=== PATIENT | male | born 1955 | race Caucasian/White ===

== ENCOUNTER → 2016-12-30 | Outpatient (CLI) | payer BC ==
[~2016-12-30] MED LIST: BUPR300T2 PO; HYDR25TA6 PO; OMNIPAQUE 350 MG/ML, 100ML BOTTLE ONE; PIND5TAB PO
== END | disposition home or self-care (01) ==
LOC: CFH 13:30
PROVIDERS: ATTEND Internal Medicine Cardiovascular Disease
DX: R06.02 Shortness of breath (principal); K76.89 Other specified diseases of liver; N28.9 Disorder of kidney and ureter, unspecified; S89.92XA Unspecified injury of left lower leg, initial encounter; Z90.49 Acquired absence of other specified parts of digestive tract; X58.XXXA Exposure to other specified factors, initial encounter; Y93.89 Activity, other specified; Y92.89 Other specified places as the place of occurrence of the external cause; Y99.8 Other external cause status
CPT/HCPCS: 71275; Q9967

== ENCOUNTER → 2017-01-03 | Outpatient (CLI) | payer BC ==
[~2017-01-03] MED LIST changes: -OMNIPAQUE 350 MG/ML, 100ML BOTTLE ONE
== END | disposition home or self-care (01) ==
LOC: CARD 15:13
PROVIDERS: ATTEND Internal Medicine Cardiovascular Disease
DX: R06.02 Shortness of breath (principal); G47.30 Sleep apnea, unspecified
CPT/HCPCS: 94060; 94726; 94729

== ENCOUNTER 2018-12-07 18:23 | Inpatient (IN) | payer BC ==
[~2018-12-07] VITALS: Ht 180.3 cm; Wt 98.0 kg
--- NOTE | 2018-12-07 18:29 | NUR ---
gift packer: pt unable to get out of car. This rn and Bill rn assited pt into bed with slide board while following [facility] prec[facility]. pt was straight back to room 31 and charge account identification clerk aware of situation. No obivious bleeding or open wounds to this RN. Care to Flyne A RN.
[2018-12-07] MEDS ORDERED: MORPHINE SULFATE 4 MG/ML, 1ML ONE (18:37)
[2018-12-07] MEDS ORDERED: ONDANSETRON 2MG/ML, 2ML ONE ×2 (18:41→21:18)
--- NOTE | 2018-12-07 18:58 | NUR ---
Lunch RN: Pt in xray at this time.
[2018-12-07] MEDS ORDERED: SODIUM CHLORIDE FLUSH 10ML SYR IVF ONE (19:00)
[2018-12-07] MEDS ORDERED: MORPHINE SULFATE 4 MG/ML, 1ML IVPush PRN (19:00)
[2018-12-07] MEDS ORDERED: ONDANSETRON 2MG/ML, 2ML IVPush ONE (19:00)
--- NOTE | 2018-12-07 19:09 | NUR ---
LUNCH RN: pt placed on o2 due to desaturation. pt reports good pain control. ekg being completed.
[2018-12-07 19:17] LABS: BASOPHILS # (AUTO) 0.03 x10^3/uL (0-0.1); BASOPHILS % (AUTO) 0 % (0-1); EOSINOPHILS # (AUTO) 0.13 x10^3/uL (0-0.4); EOSINOPHILS % (AUTO) 2 % (1-7); LYMPHOCYTES # (AUTO) 1.29 x10^3/uL (1-3.4); LYMPHOCYTES % (AUTO) 17 % (22-44); MD NO; MEAN CORPUSCULAR HEMOGLOBIN 30.5 pg (27.5-34.5); MEAN CORPUSCULAR VOLUME 92.4 fL (81-97); MEAN PLATELET VOLUME 8.6 fL (7.4-10.4); MONOCYTES # (AUTO) 0.58 x10^3/uL (0.2-0.8); MONOCYTES % (AUTO) 8 % (2-9); NEUTROPHILS # (AUTO) 5.37 x10^3/uL (1.8-6.8); NEUTROPHILS % (AUTO) 73 % (42-75); PLATELET COUNT 246 x10^3/uL (130-400); RED BLOOD COUNT 6.12 x10^6/uL (4.38-5.82); RED CELL DISTRIBUTION WIDTH 13.6 % (9.4-14.8)
[2018-12-07 19:24] LABS: ANION GAP 9 mmol/L (5-15); CALCIUM 9.3 mg/dL (8.5-10.1); CHLORIDE 105 mmol/L (98-107); CREATININE 1.51 mg/dL (0.7-1.3)
--- NOTE | 2018-12-07 19:28 | NUR ---
LUNCH RN: PT GIVE ORAL SWABS TO HELP KEEP ORAL MUCOSA MOIST PT IS NPO DUE TO POSSIBLE SURGERY AT THIS TIME.
[2018-12-07] MEDS ORDERED: SODIUM CHLORIDE 0.9% 1,000 ML IV ONE (19:35)
[2018-12-07] MEDS ORDERED: POTA10CA PO (19:41)
--- NOTE | 2018-12-07 19:48 | NUR ---
pt states pain is controlled at this time
--- NOTE | 2018-12-07 19:59 | NUR ---
report to nicolette nunez
[2018-12-07] MEDS ORDERED: Wellbutrin (20:40)
[2018-12-07 20:56] VITALS: BP 131/81
[2018-12-07] MEDS ORDERED: morphine SULFATE 10 MG/ML, 1ML IVPush PRN (21:00)
[2018-12-07] MEDS ORDERED: DOCUSATE 100 MG CAPSULE PO PRN (21:00)
[2018-12-07] MEDS ORDERED: MORPHINE SULFATE 4 MG/ML, 1ML IVPush ONE (21:00)
[2018-12-07] MEDS ORDERED: hydrALAzine 20 MG/ML, 1ML IVPush PRN (21:00)
[2018-12-07] MEDS ORDERED: ACETAMINOPHEN 325 MG TABLET PO PRN (21:00)
[2018-12-07] MEDS ORDERED: TEMAZEPAM 15 MG CAPSULE PO PRN (21:00)
[2018-12-07] MEDS ORDERED: FENTANYL PF 100 MCG/2ML ONE ×2 (21:03→22:16)
[2018-12-07] MEDS ORDERED: CEFAZOLIN 1,000 MG ONE (21:18)
[2018-12-07] MEDS ORDERED: PROPOFOL 10 MG/ML, 20ML ONE (21:18)
[2018-12-07] MEDS ORDERED: SUCCINYLCHOLINE 20 MG/ML, 10ML ONE (21:18)
[2018-12-07] MEDS ORDERED: OXYcodone 5 MG/5 ML ORAL.SOL UDC ONE (22:16)
[2018-12-07] MEDS: FENTANYL PF 100 MCG/2ML IV PRN ×2 (22:20→22:29)
[2018-12-07] MEDS ORDERED: MEPERIDINE/PF 25MG/ML,1ML ONE (22:20)
[2018-12-07] MEDS ORDERED: KETOROLAC 30 MG/1 ML ONE (22:24)
[2018-12-07] MEDS ORDERED: ONDANSETRON 2MG/ML, 2ML IVPush PRN (22:30)
[2018-12-07] MEDS ORDERED: LABETALOL 5MG/ML, 20ML IV PRN (22:30)
[2018-12-07] MEDS ORDERED: hydrALAzine 20 MG/ML, 1ML IV PRN (22:30)
[2018-12-07] MEDS ORDERED: OXYcodone 5 MG/5 ML ORAL.SOL UDC PO PRN (22:30)
[2018-12-07] MEDS ORDERED: KETOROLAC 30 MG/1 ML IV PRN (22:30)
[2018-12-07] MEDS ORDERED: PROMETHAZINE 25 MG/ML, 1ML IV PRN (22:30)
[2018-12-07] MEDS ORDERED: ALBUTEROL SULFATE 2.5 MG/3 ML NPPB PRN (22:30)
[2018-12-07] MEDS ORDERED: MEPERIDINE/PF 25MG/0.5ML IVPush PRN (22:30)
[2018-12-07] MEDS ORDERED: HYDROmorphone 2 MG/ML, 1ML ONE (22:32)
[2018-12-07] MEDS: HYDROmorphone 1 MG/ML, 1ML INJ IV PRN ×3 (22:36→22:50)
[2018-12-07] MEDS: POTASSIUM CHLORIDE 20 MEQ in LACTATED RINGERS 1,000 ML IV SCH (23:41)
[2018-12-08 00:43] VITALS: BP 129/77
[2018-12-08 04:51] VITALS: BP 135/86
[2018-12-08] MEDS ORDERED: BISACODYL 10 MG SUPP PR PRN (05:00)
[2018-12-08] MEDS ORDERED: DIPHENHYDRAMINE 50 MG/ML, 1ML IVPush PRN (05:00)
[2018-12-08] MEDS ORDERED: ALUMINUM/MAG/SIMETHICONE 30 ML UDC PO PRN (05:00)
[2018-12-08] MEDS ORDERED: ONDANSETRON 2MG/ML, 2ML IVPush PRN (05:00)
[2018-12-08] MEDS ORDERED: DIAZEPAM 5 MG TABLET PO PRN (05:00)
[2018-12-08] MEDS ORDERED: MAGNESIUM HYDROXIDE 8%, 30ML UDC PO PRN (05:00)
[2018-12-08] MEDS ORDERED: ONDANSETRON 2MG/ML, 2ML ONE (05:09)
[2018-12-08 06:33] LABS: BASOPHILS % (AUTO) 0 % (0-1); EOSINOPHILS % (AUTO) 0 % (1-7); LYMPHOCYTES # (AUTO) 0.47 x10^3/uL (1-3.4); LYMPHOCYTES % (AUTO) 5 % (22-44); MD NO; MONOCYTES # (AUTO) 0.37 x10^3/uL (0.2-0.8); MONOCYTES % (AUTO) 4 % (2-9); NEUTROPHILS # (AUTO) 9.76 x10^3/uL (1.8-6.8); NEUTROPHILS % (AUTO) 92 % (42-75); PLATELET COUNT 198 x10^3/uL (130-400); RED BLOOD COUNT 5.54 x10^6/uL (4.38-5.82); RED CELL DISTRIBUTION WIDTH 14.1 % (9.4-14.8)
[2018-12-08 06:37] LABS: ALBUMIN 3.2 g/dL (3.4-5.0); ANION GAP 7 mmol/L (5-15); CALCIUM 8.6 mg/dL (8.5-10.1); CHLORIDE 107 mmol/L (98-107); CREATININE 1.32 mg/dL (0.7-1.3)
[2018-12-08] MEDS: POTASSIUM CHLORIDE 20 MEQ in LACTATED RINGERS 1,000 ML IV SCH (07:50)
[2018-12-08] MEDS: ASPIRIN 81 MG TABLET CHEW PO SCH ×2 (08:00→09:00)
[2018-12-08] MEDS ORDERED: HYDROCHLOROTHIAZIDE 25 MG TABLET PO SCH (09:00)
[2018-12-08] MEDS ORDERED: PINDOLOL 5 MG TABLET PO SCH (09:00)
[2018-12-08] MEDS ORDERED: BUPROPION HCL 300 MG PO SCH (09:00)
[2018-12-08] MEDS ORDERED: SODIUM CHLORIDE FLUSH 10ML SYR IVF SCH (09:00)
[2018-12-08] MEDS ORDERED: SENNA/DOCUSATE TABLET PO SCH (09:00)
[2018-12-08 10:25] VITALS: BP 124/71
[2018-12-08] MEDS ORDERED: ASPI-515 PO (11:53)
[2018-12-08] MEDS ORDERED: TRAM-47 PO (11:53)
[2018-12-08] MEDS ORDERED: DOCU-131 PO (11:53)
== END 2018-12-08 13:25 | disposition home or self-care (01) | DRG 480 ==
LOC: ED 19:13 → EDIP 19:30 → 4NOR 20:19 → DCLOUNGE 12-08 13:15
PROVIDERS: ADMIT Family Medicine; ATTEND Family Medicine
PROC: 0QH634Z Insertion of Internal Fixation Device into Right Upper Femur, Percutaneous Approach (ICD-10-PCS; principal; 2018-12-07 21:30)
DX: S72.091A Other fracture of head and neck of right femur, initial encounter for closed fracture (principal); N17.0 Acute kidney failure with tubular necrosis; E87.6 Hypokalemia; W18.39XA Other fall on same level, initial encounter; F17.290 Nicotine dependence, other tobacco product, uncomplicated; F32.9 Major depressive disorder, single episode, unspecified; G89.11 Acute pain due to trauma; I11.0 Hypertensive heart disease with heart failure; I50.812 Chronic right heart failure; Z82.49 Family history of ischemic heart disease and other diseases of the circulatory system; Y93.89 Activity, other specified; Y92.89 Other specified places as the place of occurrence of the external cause; Y99.8 Other external cause status
CPT/HCPCS: 36415; 71045; 76000; 80048; 82040; 83735; 85025; 93005; C1713; G0378; J0690; J1170; J1885; J2175; J2405; J2704; J3010; J3480; J0330; J2270; J7030; J7120

== ENCOUNTER → 2019-05-27 | Outpatient (CLI) | payer BC, OTHER ==
[~2019-05-27] MED LIST changes: +ASPI-515 PO; +DOCU-131 PO; +POTA10CA PO; +TRAM-47 PO; +Wellbutrin
== END | disposition home or self-care (01) ==
LOC: CFH 14:25
PROVIDERS: ATTEND Internal Medicine Cardiovascular Disease
DX: R06.02 Shortness of breath (principal); I10 Essential (primary) hypertension
CPT/HCPCS: 93306